=== PATIENT | male | born 2000 | race Caucasian/White ===

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

== ENCOUNTER 2022-03-29 13:05 | Outpatient (CLI) | payer BC, MEDICAID, SELFPAY ==
--- NOTE | 2022-03-29 13:16 | XRR_ITS ---
PROCEDURE INFORMATION: Exam: XR Right Hand Exam date and time: 03/29/2022 1:23 PM Age: 22 years old Clinical indication: Pain and injury or trauma; Blunt trauma (contusions or hematomas); Right; Injury details: RT hand pain 3rd/4th metacarpal area, punched metal object; Additional info: R hand pain TECHNIQUE: Imaging protocol: Radiologic exam of the Right hand. Views: 1 or 2 views. COMPARISON: CR XR finger RT min 2V [id number] 12/03/2019 3:45 PM FINDINGS: Bones/joints: No radiographic evidence of acute fracture or dislocation. Mild volar subluxation of the thumb proximal phalanx. Alignment otherwise anatomic. Soft tissues: Grossly unremarkable. XR/XR hand RT 2V [id number] IMPRESSION: Mild volar subluxation of the thumb proximal phalanx. No acute fracture.
== END 2022-03-29 13:06 | disposition home or self-care (01) ==
PROVIDERS: PCP Family Medicine; Visit Provider Nurse Practitioner Family
DX: S63.101A Unspecified subluxation of right thumb, initial encounter (principal); X58.XXXA Exposure to other specified factors, initial encounter
CPT/HCPCS: 73120

== ENCOUNTER 2022-05-10 16:00 | Outpatient (CLI) | payer BC, MEDICAID, SELFPAY ==
--- NOTE | 2022-05-10 16:36 | XRR_ITS ---
PROCEDURE INFORMATION: Exam: XR Nasal Bones Exam date and time: 05/10/2022 4:59 PM Age: 22 years old Clinical indication: Injury or trauma; Fall; Blunt trauma (contusions or hematomas); Injury date: 05/06/22; Patient HX: PT fell hit nose on concrete floor 4 days ago; Additional info: Pain of the nose TECHNIQUE: Imaging protocol: XR of the nasal bones. Views: Minimum of 3 views COMPARISON: No relevant prior studies available. FINDINGS: Sinuses: Well aerated. No opacification. Bones/joints: No fracture. Soft tissues: Unremarkable. XR/XR nasal bones min 3V [id number] IMPRESSION: No fracture.
== END 2022-05-10 16:01 | disposition home or self-care (01) ==
PROVIDERS: PCP Family Medicine; Visit Provider Nurse Practitioner Family
DX: J34.89 Other specified disorders of nose and nasal sinuses (principal)
CPT/HCPCS: 70160

== ENCOUNTER → 2022-05-24 13:52 | Outpatient (BNVA) | payer BC, MEDICAID, SELFPAY | PROVIDERS: PCP Family Medicine; Referring Provider Nurse Practitioner Family; Visit Provider Orthopaedic Surgery | DX: S69.91XA Unspecified injury of right wrist, hand and finger(s), initial encounter (principal); W22.8XXA Striking against or struck by other objects, initial encounter | CPT/HCPCS: 73130 ==

== ENCOUNTER → 2023-06-28 09:42 | Outpatient (BNVA) | payer MEDICAID, SELFPAY | PROVIDERS: PCP Family Medicine; Visit Provider Anesthesiology Pain Medicine | DX: M47.816 Spondylosis without myelopathy or radiculopathy, lumbar region (principal); M47.817 Spondylosis without myelopathy or radiculopathy, lumbosacral region; M51.26 Other intervertebral disc displacement, lumbar region; M79.604 Pain in right leg; M79.605 Pain in left leg | CPT/HCPCS: 99214 ==

== ENCOUNTER → 2023-07-05 14:25 | Outpatient (BNVA) | payer MEDICAID, SELFPAY | PROVIDERS: PCP Family Medicine; Visit Provider Anesthesiology Pain Medicine | DX: M79.18 Myalgia, other site (principal); M54.50 Low back pain, unspecified | CPT/HCPCS: 20553; 99213; J1010; J3490 ==

== ENCOUNTER 2023-07-22 08:51 | Emergency (ER) | payer MEDICAID, SELFPAY ==
[2023-07-22 09:03] VITALS: BP 136/93; PULSE 105; RESP 17; O2SAT 98; BMI 30.4
--- NOTE | 2023-07-22 09:09 | XRR_ITS ---
PROCEDURE INFORMATION: Exam: XR Left Clavicle, Complete Exam date and time: 07/22/2023 9:18 AM Age: 23 years old Clinical indication: Injury or trauma; Fall; Blunt trauma (contusions or hematomas); Shoulder; Left; Additional info: Traumatic shoulder pain TECHNIQUE: Imaging protocol: Radiologic exam of the left clavicle. Complete exam. Views: Any number of views. COMPARISON: CR (CHEST, ) 07/22/2023 9:16 AM FINDINGS: Bones/joints: Normal. Soft tissues: Normal. XR/[place] [id number] IMPRESSION: No acute findings.
--- NOTE | 2023-07-22 09:09 | XRR_ITS ---
PROCEDURE INFORMATION: Exam: XR Cervical Spine Exam date and time: 07/22/2023 9:21 AM Age: 23 years old Clinical indication: Injury or trauma; Fall; Blunt trauma; Additional info: Traumatic neck and shoulder pain TECHNIQUE: Imaging protocol: Radiologic exam of the cervical spine. Views: 2 or 3 views. COMPARISON: CR (CHEST, ) 07/22/2023 9:18 AM FINDINGS: Bones/joints: Normal. No acute fracture. No spine curvature seen. There is straightening of the normal cervical lordosis, which may be positional or secondary to muscle spasm. No listhesis identified. Soft tissues: Unremarkable. XR/XR cervical spine 3V* [id number] IMPRESSION: No acute findings.
--- NOTE | 2023-07-22 09:09 | XRR_ITS ---
PROCEDURE INFORMATION: Exam: XR Left Shoulder Exam date and time: 07/22/2023 9:16 AM Age: 23 years old Clinical indication: Injury or trauma; Fall; Blunt trauma (contusions or hematomas); Shoulder; Left; Additional info: Traumatic shoulder pain TECHNIQUE: Imaging protocol: Radiologic exam of the left shoulder. Views: 2 or more views. COMPARISON: No relevant prior studies available. FINDINGS: Bones/joints: Normal. Soft tissues: Normal. XR/XR shoulder LT min 2V* [id number] IMPRESSION: No acute findings.
--- NOTE | 2023-07-22 09:11 | W.ED.EXTPRO ---
HPI - Extremity Problem General: Chief complaint: Extremity Injury, Upper Stated complaint: rigth shoulder pain Time Seen by Provider: 07/22/23 09:01 History of Present Illness: Patient was jumping a fence and fell over it last night. He landed on his shoulder. He is having pain in his left shoulder, deltoid and all the way into his neck. He is neurovascularly intact. He has trouble moving his arm secondary to pain. No other injuries. No loss of consciousness. No altered mental status. Review of Systems Narrative: Constitutional symptoms: Negative except as documented in HPI. Skin symptoms: Negative except as documented in HPI. Eye symptoms: Negative except as documented in HPI. ENMT symptoms: Negative except as documented in HPI. Respiratory symptoms: Negative except as documented in HPI. Cardiovascular symptoms: Negative except as documented in HPI. Gastrointestinal symptoms: Negative except as documented in HPI. Genitourinary symptoms: Negative except as documented in HPI. Musculoskeletal symptoms: Negative except as documented in HPI. Neurologic symptoms: Negative except as documented in HPI. Psychiatric symptoms: Negative except as documented in HPI. Endocrine symptoms: Negative except as documented in HPI. PFSH ED PFSH: Medical History Lumbar pain Social History Smoking and tobacco/nicotine status: never used tobacco/nicotine Second hand smoke exposure: No Alcohol intake: never Substance/Drug Use: never Physical Exam Narrative: EXAM NARRATIVE: General: Alert, no acute distress. Skin: warm and dry Head: Normocephalic Neck: Trachea midline Eye: Extraocular movements are intact. Ears, nose, mouth and throat: Oral mucosa moist Respiratory: Respirations are non-labored Musculoskeletal: No obvious deformity. Diffuse tenderness to palpation on the left shoulder deltoid area. Neurovascularly intact. Range of motion limited by pain in the left shoulder Neurological: Alert and oriented to person, place, time, and situation, No focal neurological deficit observed. Psychiatric: Cooperative, appropriate mood & affect. Course Vital Signs: Vital signs: Vital Signs Pulse Rate 105 H 07/22/23 09:03 Respiratory Rate 17 07/22/23 09:03 Blood Pressure 136/93 07/22/23 09:03 Pulse Oximetry 98 07/22/23 09:03 Oxygen Delivery Me thod Room Air 07/22/23 09:03 MDM - Extremity (Nontraumatic) Medical Decision Making Medical decision making: Differential diagnosis including but not limited to and based on the above HPI, review of systems and physical exam: Would have concern for cervical, clavicular or proximal humerus fractures. X-rays ordered. Orders placed to evaluate differential diagnosis based on the above differential, HPI and physical exam X-ray of the cervical spine: No fracture. Good alignment. No step-offs. This was reviewed and interpreted by myself the emergency room physician. I also reviewed the radiologist report. X-ray of the clavicle shows no fractures. X-ray of shoulder shows no fracture or dislocation. I reviewed the patient's medical record. Reexamination: XR interpretation done by ED provider, pending radiology final review Other Data Assessment and plan: - Discharged home - Discussed plan with patient. Answered any questions. - Evaluation and treatment of this problem were appropriate in the emergency setting. Discharge Plan Discharge Patient Disposition: Home Clinical Impression: Left shoulder strain Condition: Stable Prescriptions: New cyclobenzaprine 10 mg tablet 10 mg PO Q8H Qty: 20 0RF diclofenac sodium 50 mg tablet,delayed release (DR/EC) 50 mg PO Q12H Qty: 20 0RF No Action naproxen 500 mg tablet 500 mg PO BID PRN methylprednisolone acetate [Depo-Medrol] 80 mg/mL suspension 80 mg Infiltration ONCE Qty: 1 0RF bupivacaine (PF) 0.25 % (2.5 mg/mL) solution 2 ml Infiltration ONCE Qty: 1 0RF Discharge Orders: Discharge ED (Routine); Ordered 07/22/23 Ordered By: Nicole Rojas Referrals: Ciro Angel DO [Physician] - 4-7 days (Call for appointment if pain persists) Yenny Sanchez FNP [Primary Care Provider] - (You have been screened and evaluated and felt safe for discharge. Health conditions do change or evolve sometimes and as such it is important that you follow up with your Primary Doctor to be re checked, 3-5 days is a general good time frame for follow up. You are always welcome to return to the ED for re assessment if your symptoms are worsening or you have new concerns) Discharge Diet: Usual diet Discharge Activity: Increase activity as tolerated Patient Instructions: Opioid Safety, Pain Management Coding Level of Care Code ED Medical Billing Coordinator for Darryl Roberts
[2023-07-22 09:51] VITALS: BP 136/93; PULSE 96; RESP 15; O2SAT 95
== END 2023-07-22 09:53 | disposition home or self-care (01) ==
PROVIDERS: Emergency Provider Emergency Medicine; PCP Nurse Practitioner Family
DX: S46.912A Strain of unspecified muscle, fascia and tendon at shoulder and upper arm level, left arm, initial encounter (principal); W17.89XA Other fall from one level to another, initial encounter
CPT/HCPCS: 72040; 73000; 73030; 99284

== ENCOUNTER → 2023-09-19 14:54 | Outpatient (BNVA) | payer SELFPAY | PROVIDERS: PCP Nurse Practitioner Family; Referring Provider Nurse Practitioner Family; Visit Provider Student in an Organized Health Care Education/Training Program | DX: S43.102A Unspecified dislocation of left acromioclavicular joint, initial encounter; S49.92XA Unspecified injury of left shoulder and upper arm, initial encounter; W19.XXXA Unspecified fall, initial encounter | CPT/HCPCS: 73030 ==